=== PATIENT | female | born 1965 | race Caucasian/White ===

== ENCOUNTER 2016-11-14 12:57 | Emergency (ER) | payer SELFPAY ==
[2016-11-14] MEDS ORDERED: Ibuprofen 800 MG TAB ONE (13:24)
== END 2016-11-14 13:32 | disposition home or self-care (01) ==
LOC: BURERS 12:57
DX: M62.838 Other muscle spasm (principal); Z87.891 Personal history of nicotine dependence
CPT/HCPCS: 99283